=== PATIENT | male | born 1955 | race Caucasian/White ===

== ENCOUNTER 2020-02-06 00:35 | Outpatient (CLI) | payer OTHER, SELFPAY ==
[2020-02-06 19:29] LABS: SARS-CoV-2 RNA PCR Negative
== END 2020-02-06 00:36 | disposition home or self-care (01) ==
LOC: ANHCOVIDDT 00:35
PROVIDERS: PCP Internal Medicine; Visit Provider Internal Medicine Gastroenterology
DX: Z01.812 Encounter for preprocedural laboratory examination (principal); Z20.828 Contact with and (suspected) exposure to other viral communicable diseases
CPT/HCPCS: 87635; C9803; U0003

== ENCOUNTER 2020-02-09 00:34 | Day surgery (SDC) | payer OTHER, SELFPAY ==
[2020-01-30 10:48] VITALS: BMI 25.8
[2020-02-09] MEDS: LACTATED RINGERS 1,000 ML 150 ML IV CONT (06:49)
[2020-02-09 06:59] VITALS: BP 182/91; PULSE 56; RESP 15; TEMP 36.7; O2SAT 100; BMI 26.0
--- NOTE | 2020-02-09 07:33 | PM.HPGS ---
History of Present Illness History of Present Illness Consent: Risks, benefits, and alternatives have been discussed and questions answered. Patient agrees to proceed with procedure. Chief complaint: Hx of Polyps Narrative: Ludwig Yuan is a 64 year old W male referred for screening colonoscopy. Last colonoscopy was approximately 10 years ago. Patient is asymptomatic and there is no family history of colon polyps or colon cancer. PMFSH Past Medical History Medical History (Updated 02/09/20 @ 07:35 by Anirudh Nicholson MD) Dyslipidemia Hypertension Surgical History Surgical History (Updated 02/09/20 @ 07:35 by Anirudh Nicholson MD) H/O prostatectomy S/P bilateral inguinal herniorrhaphy [place] teeth extracted Meds Home Medications and Allergies Home Medications Medication Instructions Recorded Confirmed Type atorvastatin 20 mg PO DAILY 01/30/20 02/09/20 History candesartan 32 mg PO DAILY 01/30/20 02/09/20 History diltiazem HCl [Matzim LA] 240 mg PO DAILY 01/30/20 02/09/20 History hydrochlorothiazide 12.5 mg PO DAILY 01/30/20 02/09/20 History Allergies Allergy/AdvReac Type Severity Reaction Status Date / Time No Known Drug Allergies Allergy Unknown Unknown Verified 01/30/20 10:41 Vital Signs Vital Signs - 24 hr 02/09/20 06:59 Temperature 36.7 C Pulse Rate 56 L Respiratory Rate 15 Blood Pressure 182/91 H Pulse Oximetry 100 Exam Const: Orientation/consciousness: patient oriented x3 Resp: Auscultation: clear to auscultation bilaterally Cardio: Rate: regular rate Rhythm: regular rhythm Heart sounds: no murmurs GI: GI Palp: Yes Soft to palpation, No Tenderness to palpation present (GI), Yes No hepatosplenomegaly present and No Palpable mass present Auscultation: normal bowel sounds Neuro: General: patient oriented x3 and no focal motor deficits Extrem: General: no pedal edema Assessment and Plan Additional Plan screening colonoscopy in average risk patient
--- NOTE | 2020-02-09 07:44 | WPDANESEPPF ---
Anes - Initial Pre Proc Eval Procedure: Operation Date: 02/09/20 08:00 Proposed Procedures p Screening Colonoscopy - Anirudh Nicholson MD Date/Time: 02/09/20 07:44 Surgeon: Anirudh Nicholson MD Pre Op Diagnosis: Hx of Polyps Patient Data Age: 64 Gender: M Height: 6 ft Weight: 87.2 kg Last Vital Signs Temp 98.0 F 02/09/20 06:59 Pulse 56 L 02/09/20 06:59 Resp 15 02/09/20 06:59 BP 182/91 H 02/09/20 06:59 Pulse Ox 100 02/09/20 06:59 Allergies Allergy/AdvReac Type Severity Reaction Status Date / Time No Known Drug Allergies Allergy Unknown Unknown Verified 01/30/20 10:41 Home Medications Medication Instructions Recorded Confirmed Type atorvastatin 20 mg PO DAILY 01/30/20 02/09/20 History candesartan 32 mg PO DAILY 01/30/20 02/09/20 History diltiazem HCl [Matzim LA] 240 mg PO DAILY 01/30/20 02/09/20 History hydrochlorothiazide 12.5 mg PO DAILY 01/30/20 02/09/20 History Patient hx anesthesia problems: none Family hx anesthesia problems: none [facility] Past Medical History Medical History (Updated 02/09/20 @ 07:35 by Anirudh Nicholson MD) Dyslipidemia Hypertension Surgical History Surgical History (Updated 02/09/20 @ 07:35 by Anirudh Nicholson MD) H/O prostatectomy S/P bilateral inguinal herniorrhaphy [place] teeth extracted Anes - Eval Final PreProcedure Day of Procedure 02/09/20 07:44 Patient weight: normal Heart: regular rate and rhythm Lungs: clear to auscultation Airway: Mallampati scale class II Neurological: alert and oriented Last oral intake: >/= 8 hours ASA classification: III Emergent: no Anesthetic plan: proceed Anesthesia type and monitoring: general GIVS and standard monitoring Informed Consent: The patient's anesthetic plan and its attendant risks and benefits were discussed with the patient/family/POA. Questions were solicited and answers provided to the satisfaction of the patient/family/POA.
[2020-02-09 08:23] VITALS: BP 156/83; PULSE 54; RESP 16; O2SAT 98
[2020-02-09 08:33] VITALS: BP 141/83; PULSE 54; RESP 16; O2SAT 98
[2020-02-09 08:43] VITALS: BP 157/86; PULSE 54; RESP 18; O2SAT 98
== END 2020-02-09 09:05 | disposition home or self-care (01) ==
PROVIDERS: PCP Internal Medicine; Visit Provider Internal Medicine Gastroenterology
PROC: 0DJD8ZZ Inspection of Lower Intestinal Tract, Via Natural or Artificial Opening Endoscopic (ICD-10-PCS; CPT 45378; principal; 2020-02-09 08:00)
DX: Z12.11 Encounter for screening for malignant neoplasm of colon (principal); K64.8 Other hemorrhoids; I10 Essential (primary) hypertension; E78.5 Hyperlipidemia, unspecified; Z79.899 Other long term (current) drug therapy
CPT/HCPCS: 45378; 87635; C9803; J2704; J7120; U0003

== ENCOUNTER 2021-07-17 09:10 | Outpatient (CLI) | payer MEDICARE, SELFPAY ==
--- NOTE | ~2021-07-17 | MR_ITS ---
EXAMINATION: MR lumbar spine wo con EXAM DATE: 07/17/2021 10:12 INDICATION: Back pain. Pain down left leg, radiculopathy. TECHNIQUE: Multi-sequential, multiplanar MR images of the lumbar spine were obtained without contrast . Sagittal T1, T2, T2 fat saturation images. Axial T2 weighted images. There is no prior study for comparison. FINDINGS: There is moderate loss of the L4-5 and L5-S1 disc height, mild to moderate loss of L1-2 and mild at L2-3 and L3-4. Paraspinal soft tissue is unremarkable. There are no focal marrow signal abno rmalities suspicious for malignancy or acute fracture. The vertebral bodies are aligned in the AP dim ension. Level by level evaluation: T12-L1: Disc does not extend beyond the endplate margin. Facet arthropathy: None. Neural foraminal stenosis: No stenosis. Central canal stenosis: No stenosis. L1-L2: There is a mild diffuse disc bulge. Facet arthropathy: Mild. Neural foraminal stenosis: No stenosis. Central canal stenosis: No stenosis. L2-L3: There is a mild to moderate diffuse disc bulge. Facet arthropathy: Mild to moderate. Neural foraminal stenosis: Mild to moderate left, mild right. Central canal stenosis: Mild. L3-L4: There is a mild diffuse disc bulge. Facet arthropathy: Mild. Neural foraminal stenosis: No stenosis. Central canal stenosis: No stenosis. L4-L5: There is a mild to moderate diffuse disc bulge. Facet arthropathy: Mild to moderate. Neural foraminal stenosis: Moderate bilateral. Central canal stenosis: Mild. L5-S1: There is a moderate diffuse disc bulge. Facet arthropathy: Mild to moderate. Neural foraminal stenosis: Moderate to severe right, mild to moderate left. Central canal stenosis: Minimal. IMPRESSION: Overall moderate lumbar spondylosis. Reviewed, dictated and finalized at location G. [employer]
== END 2021-07-17 09:11 | disposition home or self-care (01) ==
PROVIDERS: PCP Internal Medicine
DX: M54.9 Dorsalgia, unspecified (principal); M47.816 Spondylosis without myelopathy or radiculopathy, lumbar region
CPT/HCPCS: 72148